=== PATIENT | male | born 1955 | race Caucasian/White ===

== ENCOUNTER 2021-09-19 06:53 | Day surgery (SDC) | payer OTHER ==
[~2021-09-19 06:53] MED LIST: Lactated Ringers 1,000 ML IV SCH; Lidocaine 1%/Sod Bicarbonate in NS 8.4% 1 ML Syringe IDERM PRN; Sodium Chloride 0.9% 10 ML Syringe FLUSH PRN
[2021-09-19] MEDS ORDERED: Albuterol 0.083% 2.5 MG/3 ML Neb Soln NEB SCH (07:07)
--- NOTE | 2021-09-19 07:13 | PCM.PREANE ---
Preanesthetic Assessment - Procedure Proposed Procedure: Colonoscopy - Anesthesia/Transfusion/Family Hx Anesthesia History: Prior Anesthesia Without Reaction Family History of Anesthesia Reaction: No Transfusion History: No Prior Transfusion(s) Intubation History: Unknown - Review of Systems General: No Symptoms Pulmonary: Cough (Chronic smoker cough) Cardiovascular: No Symptoms Gastrointestinal: No Symptoms Neurological: No Symptoms Other: Reports: Easy Bleeding, Easy Bruising - Physical Assessment NPO Status Date: 09/18/21 (09/18/21 0630; 23309/18 prep done) NPO Status Time: 06:30 Vital Signs: BP 155/91 HR 80 98.6 RR 20 Sat 95% RA Height: 1.88 m Weight: 100.017 kg ASA Class: 3 Mental Status: Alert & Oriented x3 Airway Class: Mallampati = 2 Dentition: Reports: Dentures Thyro-Mental Finger Breadths: 3 Mouth Opening Finger Breadths: 3 ROM/Head Extension: Full Lungs: Clear to Auscultation, Normal Respiratory Effort, Wheezing (bilateral lower lobes) Cardiovascular: Regular Rate, Regular Rhythm, No Murmurs - Lab Values: Labs reviewed and awaiting labs this a.m. and will assess when results - Imaging/EKG Impressions: EKG 09/13: NSR ectopic atrial rhythm HR 87; !st degree AV block, borderline prolonged QT - Allergies Allergies/Adverse Reactions: Allergies Allergy/AdvReac Type Severity Reaction Status Date / Time Penicillins Allergy Cannot Verified 09/18/21 14:08 Remember - Blood Blood Available: No Product(s) Available: None - Anesthesia Plan Beta Angella: Metoprolol Med Last Dose Date: 09/19/21 Med Last Dose Time: 06:20 - Acknowledgements Anesthesia Type Planned: MAC Pt an Appropriate Candidate for the Planned Anesthesia: Yes Alternatives and Risks of Anesthesia Discussed w Pt/Guardian: Yes Pt/Guardian Understands and Agrees with Anesthesia Plan: Yes PreAnesthesia Questionnaire HEENT History: Reports: Other (See Below) Other HEENT History: nasal septum repair, has dentures Cardiovascular History: Reports: Blood Clots/VTE/DVT (Left leg DVT; chronic DVT behind left knee), Hypertension, Other (See Below) Other Cardiovascular History: post phlebitic syndrome Respiratory History: Reports: COPD Gastrointestinal History: Reports: Other (See Below) Other Gastrointestinal History: sigmoidoscopy Genitourinary History: Reports: None POLE CLIMBER History: Reports: None Musculoskeletal History: Reports: Other (See Below) Other Musculoskeletal History: R shoulder pain Neurological History: Reports: None Psychiatric History: Reports: None Endocrine/Metabolic History: Reports: None Hematologic History: Reports: None Immunologic History: Reports: None Oncologic (Cancer) History: Reports: Malignant Melanoma Dermatologic History: Reports: Melanoma - Infectious Disease History Infectious Disease History: Reports: None - Past Surgical History HEENT Surgical History: Reports: Naso-Sinus Surgery Cardiovascular Surgical History: Reports: None Respiratory Surgical History: Reports: None GI Surgical History: Reports: Colonoscopy Female Surgical History: Reports: None Male Surgical History: Reports: None Neurological Surgical History: Reports: None Musculoskeletal Surgical History: Reports: Arthroscopic Knee, Shoulder Surgery Dermatological Surgical History: Reports: Other (See Below) (Skin cancer removal between shoulder blades) - SUBSTANCE USE Tobacco Use Status *Q: Current Every Day Tobacco User Tobacco Use Within Last Twelve Months: Cigarettes Second Hand Smoke Exposure: Yes Days Per Week of Alcohol Use: 7 Number of Drinks Per Day: 4 Total Drinks Per Week: 28 Recreational Drug Use History: No - HOME MEDS Home Medications: Home Meds Albuterol [Ventolin HFA] 2 puff INH Q4H PRN 09/18/21 [History] Chlorthalidone 25 mg PO DAILY 09/18/21 [History] Metoprolol Tartrate 50 mg PO BID 09/18/21 [History] Umeclidinium Brm/Vilanterol Tr [Anoro Ellipta 62.5-25 MCG] 1 puff INH DAILY 09/18/21 [History] Warfarin Sodium 8 mg PO QAM 09/18/21 [History] - CURRENT (IN HOUSE) MEDS Current Meds: Current Medications Albuterol (Albuterol 0.083% 2.5 Mg/3 Ml Neb Soln) 2.5 mg NEB ONETIME ONE Stop: 09/19/21 07:08 Lactated Ringer's (Ringers, Lactated) 1,000 mls @ 125 mls/hr IV ASDIRECTED DICK Stop: 09/19/21 23:00 Lidocaine/Sodium Bicarbonate (Lidocaine 1%/Sod Bicarbonate In Ns 8.4% 1 Ml Syringe) 0.25 ml IDERM ONETIME PRN PRN Reason: Prior to IV Start Stop: 09/19/21 18:00 Sodium Chloride (Sodium Chloride 0.9% 10 Ml Syringe) 10 ml FLUSH ASDIRECTED PRN PRN Reason: Keep Vein Open Stop: 09/19/21 18:00
[2021-09-19] MEDS ORDERED: fentaNYL 100 MCG/2 ML SDV ONE (07:46)
[2021-09-19] MEDS ORDERED: Propofol 200 MG/20 ML SDV ONE ×2 (07:46→08:57)
[2021-09-19] MEDS ORDERED: Midazolam 1 MG/ML 2 ML SDV ONE (07:47)
[2021-09-19] MEDS ORDERED: Lactated Ringers 1,000 ML ONE (08:59)
--- NOTE | 2021-09-19 09:18 | PCM48HPAN ---
Post Anesthesia Note - EVALUATION WITHIN 48HRS OF ANESTHETIC Vital Signs in Normal Range: Yes Patient Participated in Evaluation: Yes Respiratory Function Stable: Yes Airway Patent: Yes Cardiovascular Function Stable: Yes Hydration Status Stable: Yes Pain Control Satisfactory: Yes Nausea and Vomiting Control Satisfactory: Yes Mental Status Recovered: Yes Vital Signs: Last Vital Signs Temp 98.6 F 09/19/21 07:05 Pulse 80 09/19/21 07:05 Resp 20 09/19/21 07:05 BP 155/91 H 09/19/21 07:05 Pulse Ox 95 09/19/21 07:05 Vital signs at 0914: BP 132/75 97% RA HR 74 RR 20 Temp 97.9
--- NOTE | 2021-09-19 09:29 | PCM.OPNOTE ---
- General Post-Op/Procedure Note Date of Surgery/Procedure: 09/19/21 Operative Procedure(s): colonoscopy Findings: 1. melanosis coli 2. Diverticulosis 3. colon polyps 4. rectal mass Pre Op Diagnosis: positive cologuard Post-Op Diagnosis: same Anesthesia Technique: MAC Primary Surgeon: Shaniqua Lafleur Anesthesia Provider: Malina Oconnell Pathology: 1. Cecal polyp x2 2. Ascending colon polyp x3 3. Hepatic flexure polyp 4. Transverse colon polyp 5. splenic flexure polyp 6. Descending colon polyp x2 7. Sigmoid colon polyp 8. Rectal polyp x5 9. Rectal mass Fluid Replacement, Intraop: 1,200 Output, Urine Amount: 0 EBL in mLs: 0 Complications: none apparent Condition: Good
[2021-09-19] MEDS ORDERED: HYDROmorphone 0.5 MG/0.5 ML Syringe IVPUSH PRN (10:31)
[2021-09-19] MEDS ORDERED: Ondansetron 4 MG/2 ML SDV IVPUSH PRN (10:31)
[2021-09-19] MEDS ORDERED: fentaNYL 100 MCG/2 ML SDV IVPUSH PRN (10:31)
--- NOTE | 2021-09-19 12:53 | PCM.PRNOTE ---
- Free Text/Narrative Note: Operative Report Date of Surgery/Procedure: September 19, 2021 Operative Procedure: Colonoscopy to cecum Pre Op Diagnosis: positive cologuard Post-Op Diagnosis: same Surgeon: Shaniqua Lafleur MD Anesthesia Technique: MAC Anesthesia Provider: Malina Oconnell CRNA IV Fluid Replacement, Intraop: 1200cc Output, Urine Amount: 0cc EBL : 0cc Findings: 1. melanosis coli 2. Diverticulosis 3. colon polyps 4. rectal mass Specimens: 1. Cecal polyp x2 2. Ascending colon polyp x3 3. Hepatic flexure polyp 4. Transverse colon polyp 5. splenic flexure polyp 6. Descending colon polyp x2 7. Sigmoid colon polyp 8. Rectal polyp x5 9. Rectal mass Indication: The patient is a 66 year-old gentleman who presented to the outpatient clinic requesting colonoscopy after a positive colorectal cancer screening with Cologuard. We discussed the procedure of a colonoscopy including the polypectomy and biopsy. Risks of bleeding and perforation were discussed, the patient understood and wished to proceed. Written and consent was obtained Description of the procedure: The patient was brought to the endoscopy suite and placed in the left lateral decubitus position. Appropriate monitors were applied. The patient was given MAC anesthesia. An anorectal examination was performed, revealing no significant abnormalities. The scope was placed into the rectum and advanced to cecum with minimal difficulty. The patients cecum was entered, and the ileocecal valve and appendiceal orifice were identified and normal. At this point, the scope was withdrawn, paying careful attention to the mucosa. The patient had a good bowel prep, allowing for visualization of 95% of the mucosa. Diffuse mild to moderate melanosis coli was noted. Two flat polyps 3-5mm were found in the cecum and removed with a jumbo cold biopsy forceps. Three ascending colon polyps were noted measuring 2 to 4 mm and flat. These were removed with a jumbo cold biopsy forceps. An additional polyp was found in the hepatic flexure and transverse colon each measuring 3 mm and flat. These were removed with a jumbo cold biopsy forceps. A 3 mm splenic flexure polyp was removed with a jumbo cold biopsy forceps. 2 descending colon polyps were flat and removed with a jumbo cold biopsy forceps. In the sigmoid colon an additional flat 3 mm polyp was noted and removed with a jumbo cold biopsy forceps. In the rectum there were 5 polyps ranging from 2 to 5 mm flat and semipedunculated. These were removed with a jumbo cold biopsy forceps. A large rectal mass was then noted. This had the appearance of a sessile polyp that was extending superiorly. A portion of this was removed with a hot snare. Due to the large nature of this polyp, it was elected not to fully remove as he will need a submucosal resection. In the rectum, the scope was retroflexed and no additional abnormalities were noted, except for some hemorrhoidal tissue. The scope was placed back in the lumen and the excess air was aspirated. The patient tolerated the procedure well. Complications: none apparent Condition: Good, transported to PACU in stable condition Shaniqua Lafleur MD General Surgery
== END 2021-09-19 09:42 | disposition home or self-care (01) ==
LOC: JD.SDS 06:53
PROVIDERS: ATTEND Surgery
DX: D12.8 Benign neoplasm of rectum (principal); D12.0 Benign neoplasm of cecum; D12.2 Benign neoplasm of ascending colon; D12.3 Benign neoplasm of transverse colon; D12.4 Benign neoplasm of descending colon; K63.89 Other specified diseases of intestine; K57.30 Diverticulosis of large intestine without perforation or abscess without bleeding; K62.89 Other specified diseases of anus and rectum; K21.9 Gastro-esophageal reflux disease without esophagitis; J44.9 Chronic obstructive pulmonary disease, unspecified; I10 Essential (primary) hypertension; F17.210 Nicotine dependence, cigarettes, uncomplicated; Z86.16 Personal history of COVID-19; Z98.890 Other specified postprocedural states; Z79.01 Long term (current) use of anticoagulants; Z88.0 Allergy status to penicillin
CPT/HCPCS: 36415; 45380; 45385; 85610; J2250; J2704; J3010; J7120; 00811

== ENCOUNTER → 2025-10-12 | Day surgery (SDC) | payer MEDICARE, OTHER ==
[~2025-10-12] MED LIST changes: +EPINEPHrine 1 MG/ML SDV ONE; -Lactated Ringers 1,000 ML IV SCH; -Lidocaine 1%/Sod Bicarbonate in NS 8.4% 1 ML Syringe IDERM PRN; +Sodium Chloride 0.9% 10 ML Syringe FLUSH SCH
[2025-10-12] MEDS: Lactated Ringers 1,000 ML IV SCH (09:10)
== END | disposition home or self-care (01) ==
LOC: JD.SDS 08:59
PROVIDERS: ATTEND Surgery
DX: Z53.8 Procedure and treatment not carried out for other reasons (principal)
CPT/HCPCS: 93005; J7120; J0169; J0665